=== PATIENT | male | born 1960 | race Caucasian/White ===

== ENCOUNTER → 2019-03-14 09:28 | Outpatient (CLI) | payer BC ==
--- NOTE | 2019-03-20 11:25 | EC ---
PATIENT:SALVADOR LOVE DATE OF SERVICE: 03/14/19 SEX: M MEDICAL RECORD: [id number] DATE OF : 60 LOCATION:[facility] AGE OF PATIENT: 58 ADMISSION DATE: 03/14/19 REFERRING PHYSICIAN: INTERPRETING PHYSICIAN: SYLVIA SHEPHERD MD ECHOCARDIOGRAM REPORT ECHO CHARGES 4 ECHO COMPLETE Date: 03/14/19 CLINICAL DIAGNOSIS: MURMUR H/O HTN ECHOCARDIOGRAPHIC MEASUREMENTS (adult normal given) AC root (d.<3.7cm) 3.3 cm LV Septum d (<1.2 cm> 1.1 cm Valve Excursion 2.2 cm LV Septum (systole) 1.5 cm Left Atria (s.<4.0cm> 4.3 cm LVPW d(<1.2cm) 1.2 cm RV (d.<2.3cm) 2.8 cm LVPW (sytole) 1.8 cm LV diastole(<5.6CM) 5.4 cm MV E-F(>70mm/sec) cm LV systole 3.7 cm LVOT Diameter 2.0 cm MV exc.(>10mm) cm Est.ejection fraction (50-75%) % DOPPLER: LVIT cm/sec A 54.0 cm/sec E 71.0 cm/sec LA cm/sec RVSP 16.0 mmHg LVOT 97.0 cm/sec AOP1/2T m/s Asc. Ao 138 cm/sec RVOT 54.0 cm/sec RA cm/sec PA 109 cm/sec AV Gradient Peak 7.7 mmHg AV Mean 4.0 mmHg AV Area 2.2 cm MV Gradient Peak 3.5 mmHg MV Mean 0.96 mmHg MV Area cm COMMENTS: OP - HC Supervisor Ore Dressing: 1 PRUDENCIO MARCIANO Reclamation Supervisor: 3 Dr. Guzman TAPE# PACS Pericardial Effusion N DATE OF SERVICE: Adequate 2D, color flow imaging, spectral Doppler, and M-Mode No LVH. LV internal dimension is normal. Wall motion is normal. EF is greater than or equal to 55%. Aortic valve is tricuspid. No evidence of stenosis by Doppler interrogation. Left atrium is mildly dilated at 4.3 cm. Mitral valve shows no prolapse. Mild MR. Right-sided chambers are grossly normal. Trace TR. ECHOCARDIOGRAM REPORT [id number] SALVADOR LOVE TRANSINT:[id number] Voice Confirmation ID: [id number] DOCUMENT ID: [id number] SYLVIA SHEPHERD MD at 1125 CC: [id number] DICTATION DATE: 03/18/1952 GROUP ACTIVITIES AIDE: 03/18/19 1137 DEP CLI 03/14/19 [place] [id number] [place] [id number]
== END | disposition home or self-care (01) ==
LOC: D.HCCECHO 09:28
PROVIDERS: ATTEND Internal Medicine Interventional Cardiology
DX: R01.1 Cardiac murmur, unspecified (principal)